=== PATIENT | female | born 1980 | race Asian ===

== ENCOUNTER 2018-10-28 06:08 | Emergency (ER) | payer OTHER ==
[2018-10-28 06:49] VITALS: TEMP 98.3; BMI 24.1
--- NOTE | 2018-10-28 07:33 | PDOC ---
History of Present Illness - General Chief Complaint: Laceration Stated Complaint: L HAND INJURY Time Seen by Provider: 10/28/18 07:33 History Source: Patient Exam Limitations: No Limitations - History of Present Illness Initial Comments: 10/28/18 07:49 38 year old female with no PMH presented to ED for laceration to left third finger after accidentally cutting it with a knife. Pt denied numbness, tingling , weakness, fever, chills, nausea, vomiting. Pt stated she thinks her last tetanus was three years ago with her physical, but she is not sure. Allergies: NKDA Past History - Past Medical History Allergies/Adverse Reactions: Allergies Allergy/AdvReac Type Severity Reaction Status Date / Time No Known Allergies Allergy Verified 10/28/18 06:19 Home Medications: Ambulatory Orders NK [No Known Home Medication] 10/28/18 COPD: No - Suicide/Smoking/Psychosocial Hx Smoking History: Never smoked Review of Systems - Review of Systems Able to Perform ROS?: Yes Comments:: 10/28/18 07:50 General: denied fever, chills, generalized weakness. HEENT: denied sore throat, rhinorrhea, ear pain. Heart: denied chest pain, palpitations, syncope, diaphoresis. Respiratory: denied shortness of breath, cough, sputum production, hemoptysis. Abdomen: denied abdominal pain, nausea, vomiting, diarrhea, constipation, blood in stool. : denied dysuria, increased urinary frequency, hematuria, urinary incontinence , flank pain. Back: denied back pain. Musculoskeletal: denied joint pain, muscle pain, joint swelling. Neurological: denied headache, dizziness, numbness, tingling, weakness. Skin: admitted to laceration. denied rash, abrasion. *Physical Exam - Vital Signs Last Vital Signs Temp Pulse Resp BP Pulse Ox 98.3 F 84 18 133/84 98 10/28/18 06:17 10/28/18 06:17 10/28/18 06:17 10/28/18 06:17 10/28/18 06:17 - Physical Exam Comments: 10/28/18 07:50 Constitutional: Well-nourished, Well-developed, appearing stated age. HEENT: head is normocephalic, atraumatic. EOMI. PERRLA. Neck: supple. Full ROM. Heart: regular rhythm. no murmurs, rubs or gallops. Lungs: clear to auscultation bilaterally. no crackles, rhonchi or wheezing. no stridor. Abdomen: soft, nontender. normal bowel sounds. no rebound, guarding, masses. Extremities: peripheral pulses intact. no lower extremity edema. Left third finger: 3 cm laceration to the DIP on the palmar side, wrapping around to the nail, with laceration of the middle portion of the nail with an intact nail bed. intact FDP and FDS. normal sensation. Neurological: CN 2-12 grossly intact. moves all four extremities. Psych: awake, alert, oriented x3. follows commands. answers questions appropriately. Procedures - Laceration/Wound Repair Left Proximal Finger 3rd digit Wound Length: 2.6 to 5.0 cm Wound Explored: clean, no foreign body present Wound's Depth, Shape: superficial Irrigated w/ Saline: Yes Betadine Prep: No Anesthesia: 1% Lidocaine Amount of Anesthetic (ccs): 2 Wound Repaired With: Sutures, Dermabond (dermabond was applied to the middle portion of the nail) Suture Size/Type: 5:0 Number of Sutures: 5 Sterile Dressing Applied: Yes Splint Applied: No - Additional Procedures Progress: 10/28/18 08:22 Digital block of left third finger performed. -Verbal consent was obtained from the patient. -Skin was prepped with 70% isopropyl alcohol swab -A 30 gauge needle was inserted into bilateral web spaces, the plunger was retracted to verify needle was not inserted into a blood vessel -1 cc of 1% epinephrine was injected into bilateral web spaces just distal to the MCP joint -Pt tolerated the procedure well Medical Decision Making - Medical Decision Making 10/28/18 07:51 38 year old female with no PMH presented to ED for laceration to left third finger. Initial Vital Signs Temp Pulse Resp BP Pulse Ox 98.3 F 84 18 133/84 98 10/28/18 06:17 10/28/18 06:17 10/28/18 06:17 10/28/18 06:17 10/28/18 06:17 Afebrile. No tachycardia. No tachypnea. Mild hypertension. No hypoxia on room air. Labs ordered: none Imaging ordered: left hand XR Medications ordered: boostrix, ibuprofen 600 mg PO once 10/28/18 09:12 Laceration repaired with 5 5.0 sutures to the skin and dermabond to the nail. See procedure note. Post local anesthesia examination: intact FDS and FDP Pt given wound care instructions. Pt informed to follow up in 7 days for wound check and to follow up with Hand. Pt discharged. *DC/Admit/Observation/Transfer Diagnosis at time of Disposition: Laceration - Discharge Dispostion Disposition: HOME Condition at time of disposition: Improved Decision to Admit order: No - Referrals Referrals: Jose Carlos Carpenter MD [Staff Physician] - Kumar Graham MD [Staff Physician] - - Patient Instructions Printed Discharge Instructions: DI for Laceration Repair Additional Instructions: You were seen today for a laceration. Your received sutures to your wound. Keep the wound 100% dry, covered and clean for 24-48 hours, shower with a plastic bag over your hand. After this point change the dressing daily: apply bacitracin or neosporin over the wound, and cover with gauze. When you shower let the water drip over the wound, there is no need to scrub with soap. Take Ibuprofen over the counter for your pain, take as advised on label. You can add Tylenol over the counter if Ibuprofen is not enough, take as advised on label. Follow up with your primary care doctor within 5 days. Bring the paperwork given to you today to your appointment. Follow up with a Hand Specialist within 1-2 days. I have provided you with referrals. Bring the paperwork given to you today to your appointment. You must follow up in 7 days for a wound check - either here in the Emergency Department or at your Primary Care Doctor. Return to the Emergency Department in sooner than 7 days if you experience: inability to move your finger, numbness, tingling, increasing pain despite Tylenol and Ibuprofen use, fever, chills/sweats, vomiting, abdominal pain, chest pain, shortness of breath or any other new, worsening or concerning symptoms. - Post Discharge Activity Forms/Work/School Notes: Back to Work
[2018-10-28] MEDS ORDERED: IBUPROFEN 600 MG TABLET (FP) PO ONE ×2 (07:53→08:03)
[2018-10-28] MEDS ORDERED: DIPHTH,PERTUSS(ACELL),TET 0.5 ML DISP.SYRIN IM ONE ×2 (07:53→08:04)
--- NOTE | 2018-10-28 09:31 | PDOC ---
Documentation entered by Sarahy Geiger SCRIBE, acting as scribe for David Daniels MD. David Daniels MD: This documentation has been prepared by the Juanjo rojas Amanda, SCRIBE, under my direction and personally reviewed by me in its entirety. I confirm that the documentation accurately reflects all work, treatment, procedures, and medical decision making performed by me. Attending Attestation - Resident Resident Name: Rochelle Louis - [facility] HPI: 10/28/18 09:27 The patient is a 38 year old female with no PMHx who presents to the ED for laceration sustained to her left third finger after accidentally cutting it with a knife today. She denies numbness, tingling. Allergies: NKDA - Physicial Exam PE: 10/28/18 09:28 Vitals: Triage vital signs reviewed General Appearance: No acute distress, well nourished, well developed Head: Atraumatic Extremities: Full range of motion to all extremities, no cyanosis, clubbing, or edema Skin: Left Hand: (+) There is an approximately 2cm laceration to the left index finger extending from the lateral aspect of the distal finger tip long term through the nail. Warm and dry, no rashes or lesions, no rash, no petechiae Neuro: AOX3; Cranial Nerves 2-12 grossly intact, Strength intact to all extremities, Sensation intact to all extremities, gait normal - Medical Decision Making 10/28/18 14:17 Laceration to finger extending into nailbed and nail bed Dermabond and with good approximation Patient instructed to follow up with hand Findings, the need for follow-up and strict return instructions discussed patient.
[2018-10-28 09:53] VITALS: BP 109/58; PULSE 64
== END 2018-10-28 09:52 | disposition home or self-care (01) ==
LOC: JER 06:08
PROC: 0HQGXZZ Repair Left Hand Skin, External Approach (ICD-10-PCS; principal; 2018-10-28)
PROC: 3E0T3BZ Introduction of Anesthetic Agent into Peripheral Nerves and Plexi, Percutaneous Approach (ICD-10-PCS; 2018-10-28)
DX: S61.313A Laceration without foreign body of left middle finger with damage to nail, initial encounter (principal); W26.0XXA Contact with knife, initial encounter; Y93.G1 Activity, food preparation and clean up; Y92.030 Kitchen in apartment as the place of occurrence of the external cause; Y99.8 Other external cause status
CPT/HCPCS: 73130-TC-LT-FY; 90715; 99281-25

== ENCOUNTER 2020-04-05 05:02 | Day surgery (SDC) | payer OTHER ==
[2020-04-04 13:29] VITALS: BMI 22.8
--- OUTSIDE RECORDS SUMMARY | 2020-04-05 05:05 | XMS ---
:1980 Author Organization [facility] Support Name Relationship Address Phone [facility] [address] [place] [address] [employer] [address] [place] [place] [address] Re-disclosure Warning The records that you are about to access may contain information from federally- assisted alcohol or drug abuse programs. If such information is present, then the following federally mandated warning applies: This information has been disclosed to you from records protected by federal confidentiality rules (42 CFR part 2). The federal rules prohibit you from making any further disclosure of this information unless further disclosure is expressly permitted by the written consent of the person to whom it pertains or as otherwise permitted by 42 CFR part 2. A general authorization for the release of medical or other information is NOT sufficient for this purpose. The Federal rules restrict any use of the information to criminally investigate or prosecute any alcohol or drug abuse patient.The records that you are about to access may contain highly sensitive health information, the redisclosure of which is protected by Article 27-F of the [facility] Public Health law. If you continue you may haveaccess to information: Regarding HIV / AIDS; Provided by facilities licensed or operated by the [facility] Office of Mental Health; or Provided by the [facility] Office for People With Developmental Disabilities. If such information is present, then the following [facility] mandated warning applies: This information has been disclosed to you from confidential records which are protected by state law. State law prohibits you from making any further disclosure of this information without the specific written consent of the person to whom it pertains, or as otherwise permitted by law. Any unauthorized further disclosure in violation of state law may result in a fine or skilled nursing sentence or both. A general authorization for the release of medical or other information is NOT sufficient authorization for further disclosure. Insurance Providers Payer name Policy type Policy ID Covered Covered constitution party's Policy P miguel angel / Coverage constitution party ID relationship to [employer] type landeros [employer] [id number] 4 HEALTH [employer] [id number] HEALTH Results ID Date Data Source [id number] 04/01/2020 09:45:00 AM EDT [facility] Name Value Range Interpretation Description Data Sup porting Code Source(s) Document(s ) SARS [facility] coronavirus 2 RNA This lab was ordered by [facility] and reported by [facility]. Procedure
[2020-04-05] MEDS ORDERED: MIDAZOLAM HCL 2 MG/2 ML SINGLE DOSE VIAL ONE (09:52)
[2020-04-05] MEDS ORDERED: PROPOFOL 20 ML ONE (09:52)
--- NOTE | 2020-04-05 10:00 | HP ---
History & Physical Update - History History: No Change (Consent signed and witnessed all questions answered) - Physical Physical: No Change - Assessment Assessment: No Change - Plan Plan: No Change
--- NOTE | 2020-04-05 10:52 | OP ---
Operative Note - Note: Operative Date: 04/05/20 Pre-Operative Diagnosis: 39yo with suspected uterine polyps vs. Fibroids Operation: Hysteroscopy/Myomectomy/Polypectomy/D&C Findings: 1. Endometrial Polyps 2. Endometrial Fibroid 3. Overgrown Endometrium Post-Operative Diagnosis: Same as Pre-op Surgeon: Fabiola Jones Anesthesiologist/DIRECTOR DECISION SUPPORT: Tito Cerda Anesthesia: MAC Specimens Removed: Polyp, Fibroid, Endometrial curettings Estimated Blood Loss (mls): 10 Instrument used (Debridements only): Symphion Drains & Tubes with Location: FD - 400cc Drains, Volume Out (mls): 10 Fluid Volume Replaced (mls): 300 Operative Report Dictated: Yes
[2020-04-05] MEDS ORDERED: ONDANSETRON 4 MG/2 ML VIAL IVPUSH PRN ×2 (11:46→12:28)
[2020-04-05] MEDS ORDERED: oxyCODONE HCL 5 MG TABLET PO PRN ×3 (11:46→12:28)
[2020-04-05] MEDS ORDERED: LACTATED RINGERS SOLUTION 1,000 ML IV SCH (12:00)
[2020-04-05] MEDS ORDERED: IBUPROFEN 600 MG TABLET (FP) PO PRN (12:28)
[2020-04-05] MEDS ORDERED: IBUPROFEN 800 MG/8 ML IJ IVPB PRN (12:28)
[2020-04-05] MEDS ORDERED: ELECTROLYTE-148 SOLN 1,000 ML IV SCH (12:30)
[2020-04-05 16:15] VITALS: BP 120/70; PULSE 56; TEMP 97.8
--- NOTE | 2020-04-06 08:21 | OP ---
DATE OF OPERATION: 04/05/2020 PREOPERATIVE DIAGNOSIS: A 39-year-old with suspected uterine polyps versus fibroids. OPERATION: Hysteroscopy, myomectomy, polypectomy, dilation and curettage. FINDINGS: Endometrial polyps, endometrial fibroid, overgrown endometrium. POSTOPERATIVE DIAGNOSIS: A 39-year-old with suspected uterine polyps versus fibroids. SURGEON: Fabiola Jones MD ANESTHESIOLOGIST: Tito Cerda MD ANESTHESIA: MAC. SPECIMENS REMOVED: A combined specimen of polyp, fibroid and endometrial curettings. DESCRIPTION OF OPERATIVE PROCEDURE: After assuring informed consent, patient was brought to the operating room where she was placed in dorsal lithotomy position. Vagina and perineum were prepped and draped in sterile fashion. The Symphion hysteroscope was assembled, primed and white balanced. The urinary bladder was emptied with straight catheter. Chadwick retractors were placed into the vagina and anterior cervical lip was articulated with single-tooth tenaculum. Cervix was dilated to accommodate 6.3-mm Symphion hysteroscope which was introduced into the cervix and uterus without any difficulty. The above findings were noted and a resectoscope was introduced through the operative channel. Polyps, fibroids and overgrown endometrium were all resected in circumferential fashion. Subsequently all instruments and sponges were removed from cervix, uterus and vagina. All instrument and sponge count was correct x2. Estimated blood loss was 10 mL. Patient received 400 mL of fluids. There was 400 mL fluid deficit and there was 10 mL of urine drained at the beginning of the procedure. Patient tolerated the procedure well and was brought to the recovery room in stable extubated condition. Ene [id number]
--- NOTE | 2020-04-06 16:36 | PATH ---
Surgical Pathology Report Patient Name: DALE CAMACHO [facility]. Rec. #: [id number] /Age/Gender: 1980 (Age: 39) / F Account: [id number] Location: [facility] SURGICAL Taken: 04/05/2020 Received: 04/05/2020 Reported: 04/06/2020 Physicians: Fabiola Jones M.D. Specimen(s) Received ENDOMETRIAL POLYPS, ENDOMETRIAL CURETTINGS,POSSIBLE SUBMUCOSAL FIBROIDS Clinical History Abnormal uterine and vaginal bleeding, unspecified Final Diagnosis ENDOMETRIAL POLYPS, ENDOMETRIAL CURETTINGS, POSSIBLE SUBMUCOSAL FIBROID, HYSTEROSCOPIC FIBROID RESECTION, DILATION AND CURETTAGE: FRAGMENTS OF ENDOMETRIAL POLYP, SECRETORY ENDOMETRIUM, FIBROMUSCULAR TISSUE SUGGESTIVE OF SUBMUCOSAL LEIOMYOMA, AND SCANT BENIGN CERVICAL TISSUE. Electronically Signed Kaylee Nye M.D. Gross Description Received in formalin labeled "endometrial polyps, endometrial curettings and possible submucosal fibroid," is a 5.0 x 3.0 x 0.3 cm aggregate of medina-pink soft tissue fragments. The formalin is filtered and the specimen is entirely submitted in 3 cassettes. DL/04/05/2020 saudi/04/05/2020
== END 2020-04-05 14:10 | disposition home or self-care (01) ==
LOC: JASU-SURG 05:02
PROVIDERS: ATTEND Obstetrics & Gynecology
PROC: 0UJD8ZZ Inspection of Uterus and Cervix, Via Natural or Artificial Opening Endoscopic (ICD-10-PCS; 2020-04-05)
PROC: 0UB98ZZ Excision of Uterus, Via Natural or Artificial Opening Endoscopic (ICD-10-PCS; principal; 2020-04-05 10:00)
PROC: 0UDB7ZX Extraction of Endometrium, Via Natural or Artificial Opening, Diagnostic (ICD-10-PCS; 2020-04-05 10:00)
DX: D25.9 Leiomyoma of uterus, unspecified (principal); N84.0 Polyp of corpus uteri
CPT/HCPCS: 36415; 84703; 86850; 86900; 86901; 86922; 88305-TC; 94760